=== PATIENT | male | born 1995 | race African-American/Black ===

== ENCOUNTER 2021-11-06 05:53 | Emergency (ER) | payer OTHER, SELFPAY ==
[2021-11-06 06:19] VITALS: BP 153/70; PULSE 70; RESP 16; TEMP 36.8; O2SAT 97; BMI 29.9
--- NOTE | 2021-11-06 07:46 | ED.NECK ---
HPI - Neck Pain/Injury General Chief Complaint: Neck Pain/Injury Stated Complaint: neck pain Time Seen by Provider: 11/06/21 07:36 Source: patient Mode of arrival: ambulatory Limitations: no limitations History of Present Illness MD complaint: neck pain and other (swollen lymph node) Onset (ago): day(s) (2) Place: home Radiation: left lateral Severity: moderate Quality: dull and aching Duration: intermittent Relieving factors: none Exacerbating factors: movement of neck and other (palpation of area) Context: unknown Associated symptoms: other (swollen lymph node) Treatments prior to arrival: none Related Data Previous Rx's Medication Instructions Recorded amoxicillin 875 mg-potassium 1 tab PO BID #14 tabs 11/06/21 clavulanate 125 mg tablet Allergies Allergy/AdvReac Type Severity Reaction Status Date / Time No Known Allergies Allergy Verified 11/06/21 07:47 Review of Systems Review of Systems: Constitutional : No Fever, No Chills ENT/Mouth : No sore throat, No Rhinorrhea Cardiovascular : No Chest Pain, No SOB Respiratory : No Cough, No Sputum, No Wheezing Gastrointestinal : No Nausea, No Vomiting Pain, No Hematochezia, No Melena Skin : No Skin Lesions, No rash Neuro : No Weakness, No Numbness, No Dizziness, No Headache Psych : No Anxiety/Panic, No Depression Heme/Lymph: No Bruising, No Bleeding ,pos Lymphadenopathy PMFSH Past Medical History Attestation statement: The following information was validated with the patient. Medical History No pertinent past medical history Social History Social History (Updated 11/06/21 @ 07:49 by Radha Roberts DO) Patient Tobacco Use Status: Never used Tobacco Physical Exam Vital Signs: Vital Signs: Last Vital Signs Temp 98.2 F 11/06/21 06:19 Pulse 70 11/06/21 06:19 Resp 16 11/06/21 06:19 BP 153/70 H 11/06/21 06:19 Pulse Ox 97 11/06/21 06:19 O2 Del Method 11/06/21 06:19 BMI result Body Mass Index 29.9 Appearance: Alert. Oriented X3. No acute distress. Eyes: Pupils equal, round and reactive to light. ENT: Pharynx normal. no mass felt, Neck: Normal inspection. left anterior cervical tender adenopathy small 2cm mobile CVS: Normal heart rate and rhythm. Pulses normal. Respiratory: No respiratory distress. Breath sounds normal. Abdomen: Soft and non-tender. Skin: Skin warm and dry. Normal skin color. Extremities: No lower extremity edema. Neuro: Oriented X 3. No motor deficit. No sensory deficit. MDM - Neck Pain/Injury MDM Narrative Medical decision making narrative: 26 yo male healthy here with isolated tender lymphadenopathy L anterior neck no systemic symptoms no signs of swelling anywhere - will start on augmentin and refer to PCP if this does not improve Discharge Plan Discharge Clinical Impression: Acute lymphadenitis Patient Disposition: Home, Self-Care Instructions: Lymphadenopathy (ED), Adenitis (ED) Additional Instructions: return to ED for any worsening symptoms or concerns if not better on antibiotics this needs further assessment to rule out underlying causes - please see a doctor Prescriptions: New amoxicillin-pot clavulanate 875-125 mg tablet 1 tab PO BID Qty: 14 0RF Stand Alone Forms: Work/School Release
== END 2021-11-06 08:04 | disposition home or self-care (01) ==
PROVIDERS: Emergency Provider Emergency Medicine
DX: M54.2 Cervicalgia (principal); I88.9 Nonspecific lymphadenitis, unspecified
CPT/HCPCS: 99282; 99283